=== PATIENT | female | born 1950 | race Caucasian/White ===

== ENCOUNTER 2017-09-04 09:40 | Observation (INO) | payer MEDICARE ==
[2017-09-01 08:56] VITALS: BMI 39.3
[2017-09-04] MEDS ORDERED: Bupivacaine HCl 0.25% PF (10 ml) Inj ONE ×2 (10:32)
[2017-09-04] MEDS ORDERED: ceFAZolin IV 2 gm in Dextrose 2 GM/50 ML BAG IVPB ONE (10:33)
[2017-09-04] MEDS ORDERED: Vasopressin 20 Units/ml Inj ONE (10:33)
[2017-09-04] MEDS ORDERED: Lactated Ringer's 1,000 ML IV ONE ×3 (11:06→15:26)
[2017-09-04] MEDS ORDERED: Midazolam 2 MG/2 ML VIAL ONE (11:10)
[2017-09-04] MEDS ORDERED: Propofol 10 mg/ml Inj (20 ML) ONE (11:10)
[2017-09-04] MEDS ORDERED: Rocuronium 10 mg/ml (5 ml) ONE ×2 (11:27→12:12)
[2017-09-04] MEDS ORDERED: Lidocaine Hydrochloride 5 ML INJ ONE (11:27)
[2017-09-04] MEDS ORDERED: Clindamycin 2% Vaginal Cream(40 gm) ONE (12:55)
[2017-09-04] MEDS ORDERED: Phenylephrine 10 mg/ml Inj ONE (13:08)
[2017-09-04] MEDS ORDERED: Succinylcholine Chloride 20 mg/ml Syr (5 ml) IV ONE (13:08)
[2017-09-04] MEDS ORDERED: Neostigmine Methylsulfate 3mg/3ml Syringe IV ONE (13:08)
[2017-09-04] MEDS ORDERED: Methylene Blue 10 mg/mL(10ml) IV ONE (13:10)
[2017-09-04] MEDS ORDERED: HYDROmorphone 0.5 mg/0.5 ml ISec IVP PRN (15:04)
[2017-09-04] MEDS ORDERED: Morphine 4 MG/ML VIAL IM PRN ×2 (15:20→18:33)
[2017-09-04] MEDS ORDERED: Sodium Chloride 0.9% 1,000 ML IV SCH ×2 (15:30→18:30)
[2017-09-04] MEDS ORDERED: Acetaminophen IV 1,000 MG in Premixed IV 1 EA IV ONE (17:20)
[2017-09-04] MEDS: Acetaminophen IV 1,000 MG in Premixed IV 1 EA IV SCH ×2 (17:20→17:30)
[2017-09-04] MEDS: cefOXitin IV 2 gm in Dextrose 2 GM/50 ML BAG IVPB SCH (23:10)
[2017-09-05 00:45] VITALS: O2SAT 97
[2017-09-05] MEDS: cefOXitin IV 2 gm in Dextrose 2 GM/50 ML BAG IVPB SCH (08:00)
[2017-09-05 08:22] LABS: HEMATOCRIT 33.6 % (34.0-47.0); MEAN CELL VOLUME 89.9 fL (81.0-99.0); MEAN CORPUSCULAR HEMOGLOBIN 29.4 pg (27.0-31.0); MEAN CORPUSCULAR HGB CONC 32.7 g/dL (33.0-37.0); MEAN PLATELET VOLUME 9.8 fL (7.2-11.7); RED CELL DISTRIBUTION WIDTH 13.5 % (11.5-14.5)
[2017-09-05 08:32] LABS: WHITE BLOOD COUNT 13.3 K/uL (4.8-10.8)
[2017-09-05 08:47] VITALS: BP 100/60; PULSE 73; RESP 18; TEMP 98.5
[2017-09-05 08:58] LABS: ALKALINE PHOSPHATASE 74 U/L (38-126); ALT/SGPT 39 U/L (9-52); AST/SGOT 24 U/L (14-36); BILIRUBIN,TOTAL 0.5 mg/dL (0.2-1.3); BLOOD UREA NITROGEN 13 mg/dL (7-17); CALCIUM 7.7 mg/dl (8.6-10.4); CARBON DIOXIDE 28 mmol/L (22-30); CHLORIDE 100 mmol/L (98-107); GFR AFRICAN-AMERICAN > 60; GLUCOSE,RANDOM 95 mg/dL (65-105); POTASSIUM 3.9 mmol/L (3.6-5.2); SODIUM 134 mmol/L (132-148); TOTAL PROTEIN 6.6 g/dL (6.3-8.3)
[2017-09-05] MEDS ORDERED: Influenza Vaccine 60 mcg/0.5 mL SYR (4YR UP) IM ONE (09:00)
--- NOTE | 2017-09-05 21:10 | PCM.OP ---
Operative Report - Operative Report Date of Surgery/Procedure: 09/04/17 Time of Surgery/Procedure: 11:30 Surgeon: Dr. Wagner Aggregate Conveyor Operator: Dr. Hicks Anesthesia/Sedation: GETA Pre-Operative Diagnosis: cystocele stage II, fibroid uterus Post-Operative Diagnosis: same Indication for Surgery: cystocele stage II, fibroid uterus Operative Findings: cystocele stage II, fibroid uterus measuring approx 10 weeks sized, ovaries were surgically absent bilaterally, adhesions in the upper abdomen, otherwise normal anatomy, bilateral ureteral jets on cystoscopy Procedure/Operation Description: After informed consent was obtained, patient was taken to the OR. She was prepped and draped in the usual sterile fashion after being placed under general anesthesia and lithotomy position. A V-care device was placed after the cervix was gently dilated and a awad catheter was introduced. Attention was then placed on patients abdomen where a 5mm supraumbilical incision was made. The 5mm port was introduced under direct visualization with the scope. Once inside the intraabdominal cavity, pneumoperitoneum was achieved. Right and left lower quadrant 5mm ports were introduced under direct visualization. The previously mentioned findings were noted. The left adnexa was identified, and the roung ligament was cauterized and cut with the ligature. The broad ligament was then dissected down and the bladder flap was created on the left. The uterine arteries were skeletonized, cauterized and cut. The right adnexa was identified and the process was repeated on the right side. Once the bladder was appropriately mobilized and anterior colpotomy was made with electrocautery and the incision was extended circumferentially until the uterus and cervix were amputated. The specimen was then delivered with ease. The vaginal cuff was closed vaginally with the use of 2-0 Vicryl. Excellent hemostasis was noted. The intraabdominal cavity was inspected and the pedicles were hemostatic. The pneumoperitoneum was evacuated and the ports were closed with 4-0 Monocryl. The anterior vaginal epithelium was grasped with Allis clamps and a vertical incision was made with a scalpel from the urethral vaginal junction to the apex of the prolapse. The vaginal epithelium was then dissected off the pubovesical fascia. The redundant vaginal epithelium was then removed and the pubovesical fascia was plicated with the use of 0-Vicryl after a Fozia plication stitch was placed approximately 1 cm from the urethral meatus. The vaginal epithelium was closed in a running locked fashion. Excellent hemostasis was noted. Cystoscopy revealed bilateral ureteral jets and intact bladder. A triangled shaped portion of skin from the perineal body was removed. A vertical incision was made with Metzembaum scissors on the posterior vaginal epithelium and the tissue was then dissected of the perirectal fascia. The levator ani muscle was then plicated. The vaginal epithelium was closed in a running locked fashion and skin was closed in a subcuticular fashion. Vaginal packing with antibiotic ointment was then placed. Patient was then awoken from general anesthesia and taken back to the recovery room in stable condition. All lap counts and instrument counts were correct x 2. Ancef 2g were given prior to starting procedure. Estimated Blood Loss: 100mL Blood Replaced: none Sponge/Instrument Count: correct x 2 Drains: awad catheter draining clear urine Complications: none Specimen: Uterus, cervix, bilateral fallopian tubes Discharge & Condition: Discharged on postoperative day #1 in stable condition
--- NOTE | 2017-09-05 21:45 | CP.PCM.PN ---
Subjective - Date & Time of Evaluation Date of Evaluation: 09/05/17 Time of Evaluation: 08:30 - Subjective Subjective: Patient denied any acute complaints. Pain is well controlled. She is ambulating , tolerating diet. She denies nausea, vomiting, SOB, chest pain, or any other. Reports passing flatus, denies bowel movements. Objective - Vital Signs/Intake and Output Vital Signs (last 24 hours): Temp Pulse Resp BP Pulse Ox 98.5 F 73 18 100/60 97 09/05/17 08:00 09/05/17 08:00 09/05/17 08:00 09/05/17 08:00 09/05/17 08:00 - Labs Labs: 09/05/17 08:13 09/05/17 08:13 - Constitutional Appears: Well, No Acute Distress - Head Exam Head Exam: ATRAUMATIC, NORMOCEPHALIC - Eye Exam Eye Exam: EOMI - Neck Exam Neck Exam: Full ROM - Respiratory Exam Respiratory Exam: Clear to Ausculation Bilateral - Cardiovascular Exam Cardiovascular Exam: REGULAR RHYTHM - GI/Abdominal Exam GI & Abdominal Exam: Normal Bowel Sounds - Extremities Exam Extremities Exam: Normal Inspection - Psychiatric Exam Psychiatric exam: Normal Affect, Normal Mood - Skin Skin Exam: Normal Color Additional comments: Patient may be discharged home once ambulating, voiding and tolerating regular diet. - Additional Findings Additional findings: Vaginal packing was removed and no active bleeding was noted
--- NOTE | 2017-09-05 21:52 | CP.PCM.DIS ---
Provider - Provider Date of Admission: 09/04/17 15:27 Attending physician: Polly Wagner Time Spent in preparation of Discharge (in minutes): 20 Diagnosis - Discharge Diagnosis (1) Cystocele Status: Resolved (2) Fibroid uterus Status: Resolved Hospital Course - Lab Results Lab Results: Most Recent Lab Values WBC 13.3 K/uL (4.8-10.8) H D 09/05/17 08:13 RBC 3.74 Mil/uL (3.80-5.20) L 09/05/17 08:13 Hgb 11.0 g/dL (11.0-16.0) D 09/05/17 08:13 Hct 33.6 % (34.0-47.0) L 09/05/17 08:13 MCV 89.9 fL (81.0-99.0) 09/05/17 08:13 MCH 29.4 pg (27.0-31.0) 09/05/17 08:13 MCHC 32.7 g/dL (33.0-37.0) L 09/05/17 08:13 RDW 13.5 % (11.5-14.5) 09/05/17 08:13 Plt Count 184 K/uL (130-400) 09/05/17 08:13 MPV 9.8 fL (7.2-11.7) 09/05/17 08:13 Sodium 134 mmol/L (132-148) 09/05/17 08:13 Potassium 3.9 mmol/L (3.6-5.2) 09/05/17 08:13 Chloride 100 mmol/L (98-107) 09/05/17 08:13 Carbon Dioxide 28 mmol/L (22-30) 09/05/17 08:13 Anion Gap 10 (10-20) 09/05/17 08:13 BUN 13 mg/dL (7-17) 09/05/17 08:13 Creatinine 0.7 mg/dL (0.7-1.2) 09/05/17 08:13 Est GFR ( Amer) > 60 09/05/17 08:13 Est GFR (Non-Af Amer) > 60 09/05/17 08:13 Random Glucose 95 mg/dL (65-105) 09/05/17 08:13 Calcium 7.7 mg/dl (8.6-10.4) L 09/05/17 08:13 Total Bilirubin 0.5 mg/dL (0.2-1.3) 09/05/17 08:13 AST 24 U/L (14-36) 09/05/17 08:13 ALT 39 U/L (9-52) 09/05/17 08:13 Alkaline Phosphatase 74 U/L (38-126) 09/05/17 08:13 Total Protein 6.6 g/dL (6.3-8.3) 09/05/17 08:13 Albumin 3.2 g/dL (3.5-5.0) L D 09/05/17 08:13 Globulin 3.4 gm/dL (2.2-3.9) 09/05/17 08:13 Albumin/Globulin Ratio 1.0 (1.0-2.1) 09/05/17 08:13 Blood Type O POSITIVE 09/04/17 11:13 Antibody Screen Negative 09/04/17 11:13 - Hospital Course Hospital Course: Patient underwent a total laparoscopic hysterectomy, anterior and posterior repair cystoscopy and tolerated procedure well. On postoperative day #1 patient was ambulating, voiding, tolerating regular diet, vital signs remained within normal limits, man was well controlled. She was then discharged home in stable condition - Date & Time of H&P Date of H&P: 09/04/17 Time of H&P: 10:00 Discharge Exam - Head Exam Head Exam: ATRAUMATIC, NORMOCEPHALIC - Eye Exam Eye Exam: EOMI - Neck Exam Neck exam: Full Rom - Respiratory Exam Respiratory Exam: Clear to PA & Lateral - Cardiovascular Exam Cardiovascular Exam: REGULAR RHYTHM - GI/Abdominal Exam GI & Abdominal Exam: Normal Bowel Sounds - Extremities Exam Extremities exam: normal inspection - Neurological Exam Neurological exam: Oriented x3 - Psychiatric Exam Psychiatric exam: Normal Affect, Normal Mood - Skin Skin Exam: Normal Color, Warm Discharge Plan - Follow Up Plan Condition: GOOD Disposition: DISCHARGED TO HOME CARE Instructions: Cystoscopy (DC), Anterior Vaginal Repair (DC), Laparoscopic Hysterectomy (DC), Posterior Vaginal Repair (DC) Additional Instructions: Follow up as outpatient in 1 week. Avoid heavy lifting.
== END 2017-09-05 12:30 | disposition home health service (06) ==
LOC: C.SDS 09:40 → C.4M 15:27
PROVIDERS: ADMIT Obstetrics & Gynecology; ATTEND Obstetrics & Gynecology
DX: D25.1 Intramural leiomyoma of uterus (principal); N81.10 Cystocele, unspecified; N88.8 Other specified noninflammatory disorders of cervix uteri; N80.0 Endometriosis of uterus; Z90.722 Acquired absence of ovaries, bilateral
CPT/HCPCS: 36415; 52000; 57260; 58570; 58661; 80053; 85027; 86850; 86900; 88305; 88309; 96372; 96374; 96375; 96376; C2615; G0378; J0131; J0690; J0694; J1100; J1170; J1644; J1885; J2250; J2370; J2405; J2704; J2710; J3010; J7120

== ENCOUNTER 2018-04-30 19:27 | Emergency (ER) | payer MEDICARE ==
[2018-04-30 19:28] VITALS: BMI 39.3
[2018-04-30 19:39] VITALS: TEMP 98.1
[2018-04-30] MEDS ORDERED: Sodium Chloride 0.9% 1,000 ML IV ONE (19:59)
--- NOTE | 2018-04-30 20:10 | C.PDOC ---
History Of Present Illness 68 year old female presents to the ED c/o left sided chest wall pain and upper abdominal pain for 2 days. Patient reports she stated feeling flank pain today as well. Patient denies fever, chills, nausea, vomit, diarrhea, dysuria, hematuria. Chief Complaint (Nursing): Abdominal Pain History Per: Patient History/Exam Limitations: no limitations Onset/Duration Of Symptoms: Days Current Symptoms Are (Timing): Still Present Location Of Pain/Discomfort: Epigastric Radiation Of Pain To:: Chest Quality Of Discomfort: "Pain" Associated Symptoms: Back Pain. denies: Nausea, Vomiting, Diarrhea, Urinary Symptoms Exacerbating Factors: None Alleviating Factors: None Recent travel outside of the [place]: No Additional History Per: Patient Abnormal Vaginal Bleeding: No Past Medical History Reviewed: Historical Data, Nursing Documentation, Vital Signs Vital Signs: Last Vital Signs Temp 98.1 F 04/30/18 19:34 Pulse 90 04/30/18 19:34 Resp 20 04/30/18 19:34 BP 143/82 04/30/18 19:34 Pulse Ox 98 04/30/18 20:18 - Medical History PMH: Anemia, Bronchitis, Fractures (LEFT TIBIA ORIF), Gastritis, HTN, Hypercholesterolemia, Hypothyroidism Denies: Chronic Kidney Disease Surgical History: Endoscopy - [facility] Procedures D & C NEC (06/09/14) LAP PROCS FOR CREATION OF ESOPHAGOGASTRIC SPHINCT COMPETENCE (01/17/15) LAPAROSCOP REMOVE OVARIES/TUBES (06/09/14) LAPAROSCOPIC REPAIR OF DIAPHRAGMATIC HRN, ABDOMINAL APPROACH (01/17/15) LAPAROSCOPIC ROBOTIC ASSISTED PROCEDURE (01/17/15) OTHER ENDOSCOPY OF SM INTEST (12/22/14) REMOVAL IUD (06/09/14) TRANSABDOM ENDOSC OF SM INTES (01/17/15) Family History: States: Unknown Family Hx - Social History Hx Tobacco Use: No Hx Alcohol Use: No Hx Substance Use: No - Immunization History Hx Tetanus Toxoid Vaccination: No Hx Influenza Vaccination: No Hx Pneumococcal Vaccination: No Review Of Systems Constitutional: Negative for: Fever, Chills Cardiovascular: Positive for: Chest Pain. Negative for: Palpitations Respiratory: Negative for: Cough, Shortness of Breath Gastrointestinal: Positive for: Abdominal Pain. Negative for: Nausea, Vomiting Genitourinary: Negative for: Dysuria, Hematuria Musculoskeletal: Positive for: Back Pain Skin: Negative for: Rash Neurological: Negative for: Weakness, Numbness Physical Exam - Physical Exam Appears: Non-toxic, No Acute Distress Skin: Normal Color, Warm, Dry Head: Atraumatic, Normacephalic Eye(s): bilateral: Normal Inspection Oral Mucosa: Moist Neck: Normal ROM, Supple Chest: Symmetrical, Tenderness (left lateral on palpation) Cardiovascular: Rhythm Regular Respiratory: Normal Breath Sounds, No Rales, No Rhonchi, No Wheezing Gastrointestinal/Abdominal: Soft, Tenderness (epipasgtric and mild RUQ), No Guarding, No Rebound Back: No CVA Tenderness Extremity: Normal ROM, No Tenderness, No Swelling Neurological/Psych: Oriented x3, Normal Speech Gait: Steady ED Course And Treatment - Laboratory Results Result Diagrams: 04/30/18 20:19 04/30/18 20:19 ECG: Interpreted By Me, Viewed By Me ECG Rhythm: Sinus Rhythm, Nonspecific Changes ECG Interpretation: No Acute Changes, Abnormal Interpretation Of ECG: NSR, non. spc. ST-T changes, abnormal tracings Rate From EC O2 Sat by Pulse Oximetry: 98 (ON RA) Pulse Ox Interpretation: Normal Medical Decision Making Medical Decision Making: Plan: * Labs * CXR * Pepcid 20 mg IVP * IV fluids * Toradol 30 mg IVP * Zofran 4 mg IVP * UA Disposition Counseled Patient/Family Regarding: Diagnosis - Disposition Referrals: [facility] [Outside] Disposition: HOME/ ROUTINE Disposition Time: 21:34 Condition: STABLE Prescriptions: Ciprofloxacin [Cipro] 1 tab PO BID #14 tab Famotidine [Pepcid] 20 mg PO BID #20 tab Instructions: Urinary Tract Infections in Adults, Gastritis, Ulcer and Gastritis Diet Forms: [facility] (Arabic), Gen Discharge Inst Greek Print Language: DANISH - POA Present On Arrival: None - Clinical Impression Clinical Impression: Gastritis, UTI (urinary tract infection) - Scribe Statement The provider has reviewed the documentation as recorded by the Scribe Zion Schrader All medical record entries made by the Scribe were at my direction and personally dictated by me. I have reviewed the chart and agree that the record accurately reflects my personal performance of the history, physical exam, medical decision making, and the department course for this patient. I have also personally directed, reviewed, and agree with the discharge instructions and disposition.
--- NOTE | 2018-04-30 20:11 | C.PDOC ---
History Of Present Illness 68 year old female presents to the ED c/o left sided chest wall pain and upper abdominal pain for 2 days. Patient reports she stated feeling flank pain today as well. Patient denies fever, chills, nausea, vomit, diarrhea, dysuria, hematuria. Chief Complaint (Nursing): Abdominal Pain History Per: Patient History/Exam Limitations: no limitations Onset/Duration Of Symptoms: Days Current Symptoms Are (Timing): Still Present Location Of Pain/Discomfort: Epigastric Radiation Of Pain To:: Chest Quality Of Discomfort: "Pain" Associated Symptoms: denies: Nausea, Vomiting, Diarrhea, Loss Of Appetite, Urinary Symptoms Alleviating Factors: None Recent travel outside of the [place]: No Additional History Per: Patient Abnormal Vaginal Bleeding: No Past Medical History Reviewed: Historical Data, Nursing Documentation, Vital Signs Vital Signs: Last Vital Signs Temp 98.1 F 04/30/18 19:34 Pulse 90 04/30/18 19:34 Resp 20 04/30/18 19:34 BP 143/82 04/30/18 19:34 Pulse Ox 98 04/30/18 19:34 - Medical History PMH: Anemia, Bronchitis, Fractures (LEFT TIBIA ORIF), Gastritis, HTN, Hypercholesterolemia, Hypothyroidism Denies: Chronic Kidney Disease Surgical History: Endoscopy - [facility] Procedures D & C NEC (06/09/14) LAP PROCS FOR CREATION OF ESOPHAGOGASTRIC SPHINCT COMPETENCE (01/17/15) LAPAROSCOP REMOVE OVARIES/TUBES (06/09/14) LAPAROSCOPIC REPAIR OF DIAPHRAGMATIC HRN, ABDOMINAL APPROACH (01/17/15) LAPAROSCOPIC ROBOTIC ASSISTED PROCEDURE (01/17/15) OTHER ENDOSCOPY OF SM INTEST (12/22/14) REMOVAL IUD (06/09/14) TRANSABDOM ENDOSC OF SM INTES (01/17/15) Family History: States: Unknown Family Hx - Social History Hx Tobacco Use: No Hx Alcohol Use: No Hx Substance Use: No - Immunization History Hx Tetanus Toxoid Vaccination: No Hx Influenza Vaccination: No Hx Pneumococcal Vaccination: No Review Of Systems Constitutional: Negative for: Fever, Chills Cardiovascular: Positive for: Chest Pain. Negative for: Palpitations Respiratory: Negative for: Shortness of Breath Gastrointestinal: Positive for: Abdominal Pain. Negative for: Nausea, Vomiting , Diarrhea Genitourinary: Negative for: Dysuria, Hematuria Musculoskeletal: Positive for: Back Pain Skin: Negative for: Rash Neurological: Negative for: Weakness, Numbness Physical Exam - Physical Exam Appears: Non-toxic, No Acute Distress Skin: Normal Color, Warm, Dry Head: Atraumatic, Normacephalic Eye(s): bilateral: Normal Inspection Oral Mucosa: Moist Neck: Normal ROM, Supple Chest: Symmetrical, Tenderness (left lateral on palpation) Cardiovascular: Rhythm Regular Respiratory: Normal Breath Sounds, No Rales, No Rhonchi, No Wheezing Gastrointestinal/Abdominal: Soft, Tenderness (epigastric and mild RUQ), No Guarding, No Rebound Back: No CVA Tenderness Extremity: Normal ROM, No Tenderness, No Swelling Neurological/Psych: Oriented x3, Normal Speech Gait: Steady ED Course And Treatment O2 Sat by Pulse Oximetry: 98 (ON RA) Pulse Ox Interpretation: Normal Medical Decision Making Medical Decision Making: Plan: * Labs * CXR * Pepcid 20 mg IVP * IV fluids * Toradol 30 mg IVP * Zofran 4 mg IVP * UA * Disposition - Disposition - Scribe Statement The provider has reviewed the documentation as recorded by the Scribe Zion Schrader All medical record entries made by the Scribe were at my direction and personally dictated by me. I have reviewed the chart and agree that the record accurately reflects my personal performance of the history, physical exam, medical decision making, and the department course for this patient. I have also personally directed, reviewed, and agree with the discharge instructions and disposition.
[2018-04-30 20:25] LABS: BASO # 0.1 K/uL (0.0-0.2); BASO % 1.1 % (0.0-2.0); EOS # 0.2 K/uL (0.0-0.7); LYMPH # 2.2 K/uL (1.0-4.3); LYMPH % 23.1 % (20.0-40.0); MEAN CELL VOLUME 90.2 fL (81.0-99.0); MEAN CORPUSCULAR HEMOGLOBIN 29.7 pg (27.0-31.0); MEAN CORPUSCULAR HGB CONC 32.9 g/dL (33.0-37.0); MEAN PLATELET VOLUME 8.7 fL (7.2-11.7); MONO # 0.7 K/uL (0.0-0.8); MONO % 6.9 % (0.0-10.0); NEUT # 6.3 K/uL (1.8-7.0); NEUT % 66.9 % (50.0-75.0); RBC 4.44 Mil/uL (3.80-5.20); RED CELL DISTRIBUTION WIDTH 13.6 % (11.5-14.5); WHITE BLOOD COUNT 9.4 K/uL (4.8-10.8)
[2018-04-30] MEDS ORDERED: Sodium Chloride 0.9% 0 ML ONE (20:25)
[2018-04-30 20:31] LABS: HEMOGLOBIN 13.2 g/dL (11.0-16.0)
[2018-04-30] MEDS ORDERED: Sodium Chloride 0.9% 1,000 ML ONE (20:32)
[2018-04-30 20:48] LABS: ALB/GLOB RATIO 1.3 (1.0-2.1); ALT/SGPT 46 U/L (9-52); AST/SGOT 29 U/L (14-36); BLOOD UREA NITROGEN 17 mg/dL (7-17); CALCIUM 9.2 mg/dl (8.6-10.4); GFR AFRICAN-AMERICAN > 60; GFR NON-AFRICAN AMERICAN > 60; LIPASE 53 U/L (23-300)
[2018-04-30 21:06] LABS: SQUAMOUS EPITHIAL 4 /hpf (0-5); URINE BILIRUBIN NEGATIVE (NEGATIVE); URINE BLOOD NEGATIVE (NEGATIVE); URINE CLARITY Hazy (Clear); URINE COLOR Yellow (YELLOW); URINE GLUCOSE (UA) NORMAL (Normal); URINE LEUKOCYTE ESTERASE 1+ Leu/uL (Negative); URINE PROTEIN NEGATIVE (NEGATIVE); URINE UROBILINOGEN NORMAL mg/dL (0.2-1.0)
[2018-04-30 22:02] VITALS: BP 130/70; PULSE 70; RESP 14; O2SAT 99
--- NOTE | 2018-05-01 08:33 | RAD ---
HISTORY: COMPARISON: 01/18/2015. TECHNIQUE: Chest PA and lateral FINDINGS: LINES AND TUBES: None. LUNG AND PLEURA: The lungs are well inflated and clear. No pleural effusion or pneumothorax. HEART AND MEDIASTINUM: The heart is not enlarged. The hilar and mediastinal contours are within normal limits. SKELETAL STRUCTURES: The bony structures are within normal limits for the patient's age. VISUALIZED UPPER ABDOMEN: Normal. OTHER FINDINGS: None. IMPRESSION: No active pulmonary disease.
== END 2018-04-30 22:02 | disposition home or self-care (01) ==
LOC: C.ER 19:27
DX: K29.70 Gastritis, unspecified, without bleeding (principal); N39.0 Urinary tract infection, site not specified
CPT/HCPCS: 71046; 80053; 81001; 83690; 84484; 85025; 85378; 96374; 96375; 99284; J1885; J2405; J7030

== ENCOUNTER 2018-09-08 07:42 | Day surgery (SDC) | payer MEDICARE ==
[2018-09-08] MEDS ORDERED: cefOXitin IV 2 gm in Dextrose 2 GM/50 ML BAG IVPB ONE (08:45)
[2018-09-08] MEDS ORDERED: Clindamycin 2% Vaginal Cream(40 gm) ONE (08:45)
[2018-09-08] MEDS ORDERED: Bupivacaine HCl 0.5% PF (30 ml) Inj ONE (08:47)
[2018-09-08] MEDS ORDERED: Midazolam 2 MG/2 ML VIAL ONE (09:10)
[2018-09-08] MEDS ORDERED: Propofol 10 mg/ml Inj (20 ML) ONE (09:11)
[2018-09-08] MEDS ORDERED: Vasopressin 20 Units/ml Inj ONE (09:39)
--- NOTE | 2018-09-08 11:05 | PCM.SURG1 ---
Surgeon's Initial Post Op Note - Surgeon's Notes Surgeon: Dr. Wagner Sorter Lumber Straightener: Dr. Dyson Type of Anesthesia: General Endo Pre-Operative Diagnosis: Vaginal vault prolapse, pelvic pain Operative Findings: Stage III vaginal prolapse Post-Operative Diagnosis: same Operation Performed: Anterior/posterior colporrhaphy, cystoscopy Specimen/Specimens Removed: portions of vaginal epithelium Estimated Blood Loss: EBL {In ML}: 50 Blood Products Given: N/A Drains Used: No Drains Post-Op Condition: Good Date of Surgery/Procedure: 09/08/18 Time of Surgery/Procedure: 09:00
[2018-09-08] MEDS ORDERED: Lactated Ringer's 1,000 ML IV ONE ×2 (11:07→11:22)
[2018-09-08] MEDS ORDERED: HYDROmorphone 0.5 mg/0.5 ml ISec IVP PRN (11:07)
[2018-09-08] MEDS ORDERED: Oxycodone/Acetaminophen 5/325 mg Tab PO PRN (11:21)
[2018-09-08] MEDS ORDERED: Sodium Chloride 0.9% 1,000 ML IV SCH (11:30)
[2018-09-08 13:27] VITALS: PULSE 73; RESP 16
[2018-09-08 15:34] VITALS: BP 111/67; TEMP 97.5; O2SAT 95
--- NOTE | 2018-09-11 12:36 | PCM.OP ---
Operative Report - Operative Report Date of Surgery/Procedure: 09/08/18 Time of Surgery/Procedure: 09:30 Surgeon: Dr. Wagner Paraprofessional Aide: Dr. Dyson Anesthesia/Sedation: General anesthesia Pre-Operative Diagnosis: Pelvic organ prolapse, pelvic pain Post-Operative Diagnosis: same Indication for Surgery: vaginal vault prolapse, pelvic pain Operative Findings: Vaginal vault prolapse to level of introitus Procedure/Operation Description: After informed consent was obtained patient was taken back to the OR. She was prepped and draped in the usual sterile fashion after being placed in lithotomy position. After awad catheter was placed a weighted speculum was introduced. The anterior vaginal epithelium was injected with Pitressin. A midline vertical incision was made with a scalpel. The vaginal epithelium was then sharply and bluntly dissected off the vesico-vaginal fascia. The fascia was then plicated with 2-0 Vicryl. The excess vaginal epithelium was then removed and the epithelium was closed in a running locked fashion. Attention was then placed on the posterior vaginal epithelium was injected with pitressin. The vaginal epithelium was then sharply and bluntly off. The posterior rectovaginal tissue was plicated. The excess vaginal epithelium was then removed and the incision was closed with 2-0 Vicryl. Excellent hemostasis was noted. Vaginal packing was placed. Patient was then awoken from general anesthesia and taken back to the recovery room in stable condition. All lap counts and instrument counts were correct x 2. Estimated Blood Loss: 50 Complications: none Discharge & Condition: stable
== END 2018-09-08 15:02 | disposition home or self-care (01) ==
LOC: C.SDS 07:42
PROVIDERS: ATTEND Obstetrics & Gynecology
DX: N81.10 Cystocele, unspecified (principal); N81.6 Rectocele
CPT/HCPCS: 57260; 88305; J0694; J1170; J2250; J2704; J3010; J7120

== ENCOUNTER 2019-03-19 17:58 | Observation (INO) | payer MEDICARE ==
[2019-03-19 17:58] VITALS: BMI 39.3
[2019-03-19 18:34] LABS: BASO # 0.1 K/uL (0.0-0.2); BASO % 0.6 % (0.0-2.0); EOS # 0.4 K/uL (0.0-0.7); EOS % 3.6 % (0.0-4.0); HEMOGLOBIN 7.7 g/dL (11.0-16.0); LYMPH # 2.1 K/uL (1.0-4.3); LYMPH % 19.4 % (20.0-40.0); MEAN CELL VOLUME 81.1 fL (81.0-99.0); MEAN CORPUSCULAR HGB CONC 30.9 g/dL (33.0-37.0); MEAN PLATELET VOLUME 8.7 fL (7.2-11.7); MONO # 1.3 K/uL (0.0-0.8); MONO % 11.4 % (0.0-10.0); NEUT # 7.2 K/uL (1.8-7.0); NRBC % 0.1 % (0.0-2.0); RBC 3.06 Mil/uL (3.80-5.20); RED CELL DISTRIBUTION WIDTH 18.5 % (11.5-14.5); WHITE BLOOD COUNT 11.1 K/uL (4.8-10.8)
[2019-03-19 18:45] LABS: ALB/GLOB RATIO 1.3 (1.0-2.1); ALBUMIN 3.7 g/dL (3.5-5.0); ALT/SGPT 35 U/L (9-52); AMYLASE < 30 U/L (30-110); AST/SGOT 25 U/L (14-36); BLOOD UREA NITROGEN 26 mg/dL (7-17); CALCIUM 8.6 mg/dl (8.6-10.4); GFR NON-AFRICAN AMERICAN > 60; LIPASE 63 U/L (23-300)
--- NOTE | 2019-03-19 19:09 | C.PDOC ---
History Of Present Illness 68 y/o female presents to ED complaining of 8 days of abdominal cramping pain, dyspnea on exertion, and dizziness with chest pressure while walking. Patient was seen by Dr. Dooley a week ago and found to have significant anemia. Patient did not present for further evaluation. Was sent to spark tester (unknown) and an external him analyst was placed on left upper chest which patient believes is causing her to have chest pressure and tightness while she walks. Time Seen by Provider: 03/19/19 18:23 Chief Complaint (Nursing): Abdominal Pain History Per: Patient History/Exam Limitations: no limitations Onset/Duration Of Symptoms: Days Current Symptoms Are (Timing): Still Present Past Medical History Reviewed: Historical Data, Nursing Documentation, Vital Signs Vital Signs: Last Vital Signs Temp 97.6 F 03/19/19 18:05 Pulse 72 03/19/19 18:05 Resp 18 03/19/19 18:05 BP 109/74 03/19/19 18:05 Pulse Ox 98 03/19/19 18:05 Primary Care Provider: Dax Dooley - Medical History PMH: Anemia, Bronchitis, Fractures (LEFT TIBIA ORIF), Gastritis, HTN, Hypercholesterolemia, Hypothyroidism Denies: Chronic Kidney Disease Surgical History: Endoscopy - [facility] Procedures D & C NEC (06/09/14) LAP PROCS FOR CREATION OF ESOPHAGOGASTRIC SPHINCT COMPETENCE (01/17/15) LAPAROSCOP REMOVE OVARIES/TUBES (06/09/14) LAPAROSCOPIC REPAIR OF DIAPHRAGMATIC HRN, ABDOMINAL APPROACH (01/17/15) LAPAROSCOPIC ROBOTIC ASSISTED PROCEDURE (01/17/15) OTHER ENDOSCOPY OF SM INTEST (12/22/14) REMOVAL IUD (06/09/14) TRANSABDOM ENDOSC OF SM INTES (01/17/15) Family History: States: No Known Family Hx - Social History Hx Tobacco Use: No Hx Alcohol Use: No Hx Substance Use: No - Immunization History Hx Tetanus Toxoid Vaccination: No Hx Influenza Vaccination: No Hx Pneumococcal Vaccination: No Review Of Systems Except As Marked, All Systems Reviewed And Found Negative. Respiratory: Positive for: Other (dyspnea on excertion) Gastrointestinal: Positive for: Abdominal Pain. Negative for: Nausea, Vomiting Neurological: Positive for: Dizziness Physical Exam - Physical Exam Appears: Non-toxic, No Acute Distress, Other (elderly female) Skin: Warm, Dry Head: Normacephalic Eye(s): bilateral: Normal Inspection Oral Mucosa: Moist Neck: Supple Chest: Other (him analyst on left anterior chest) Cardiovascular: Rhythm Regular, No Murmur Respiratory: Normal Breath Sounds, No Rales, No Rhonchi, No Wheezing Gastrointestinal/Abdominal: Soft, No Guarding, No Rebound, Other (abdomen globus and obese, alternatingly dull and tympanic to percussion) Extremity: No Pedal Edema, Other (lower extremities obese) Extremity: Bilateral: Normal Color And Temperature Neurological/Psych: Oriented x3, Normal Speech ED Course And Treatment - Laboratory Results Result Diagrams: 03/19/19 18:27 03/19/19 18:27 Lab Results: Total Bilirubin 0.2 mg/dL (0.2-1.3) 03/19/19 18:27 AST 25 U/L (14-36) 03/19/19 18:27 ALT 35 U/L (9-52) 03/19/19 18:27 Alkaline Phosphatase 103 U/L (38-126) 03/19/19 18:27 Total Protein 6.6 g/dL (6.3-8.3) 03/19/19 18:27 Albumin 3.7 g/dL (3.5-5.0) 03/19/19 18:27 Globulin 2.9 gm/dL (2.2-3.9) 03/19/19 18:27 Albumin/Globulin Ratio 1.3 (1.0-2.1) 03/19/19 18:27 Amylase < 30 U/L (30-110) L 03/19/19 18:27 Lipase 63 U/L (23-300) 03/19/19 18:27 Lab Interpretation: Abnormal (+ significant HGB drop c/w 05/06, not microcytic,) ECG: Interpreted By Me ECG Rhythm: Sinus Rhythm ECG Interpretation: Normal Rate From EC O2 Sat by Pulse Oximetry: 98 (RA) Pulse Ox Interpretation: Normal - Radiology CXR: Interpreted by Me CXR Interpretation: Yes: No Acute Disease - Other Rad abd x 2 X-Ray: Interpreted by Me (increased stool and gas, no obstruction) Reevaluation Time: 19:30 Reassessment Condition: Unchanged - Physician Consult Information Outcome Of Conversation: 1930: d/w Dr. Hang Pillai, Hospitalist- covering pts for Dr. Caio godoy to Med/Surg Obs Medical Decision Making Medical Decision Making: Plan: --EKG --Labs --Protonix --UA --Obstructive Series 8 days belly discomfort with dark stools and occasional BRBPR last Colonoscopy 10 yrs ago no sig weight gains/loss Suspect upper vs lower GIB Protonix empirically Consider CT scan as inpt GI Consult for upper/lower endoscopies Symptomatic anemia with SAUL and Palps x 2 weeks Cardiac mobile monitor on L chest but no labs done @ [facility] EKG NSR 69, no acute changes Disposition Doctor Will See Patient In The: Hospital Counseled Patient/Family Regarding: Studies Performed, Diagnosis - Disposition Disposition: HOSPITALIZED Disposition Time: 19:33 Condition: GOOD - Clinical Impression Clinical Impression: GI bleeding, Symptomatic anemia - Scribe Statement The provider has reviewed the documentation as recorded by the Harrison Adams Provider Attestation: All medical record entries made by the Harrison were at my direction and personally dictated by me. I have reviewed the chart and agree that the record accurately reflects my personal performance of the history, physical exam, medi suhas decision making, and the department course for this patient. I have also personally directed, reviewed, and agree with the discharge instructions and disposition.
[2019-03-19 20:14] VITALS: RESP 20
--- NOTE | 2019-03-19 21:08 | CP.PCM.HP ---
<Henrique Lyles - Last Filed: 03/20/19 03:51> History of Present Illness - History of Present Illness History of Present Illness: Medicine History and Physical for Hospitalist Service, Dr. Coni Pillai 67 y o female PMhx HTN, arthritis, hypothyroidism, anemia, gastritis, s/p hiatal hernia repair 3 y ago, who presents c/o BRBPR x 8 days and abd pain. States that the abd pain starts in mid-epigastric region and then spreads downward. Describes abd pain as achy. Denies hx of this occurring before. Reports associated palpitations, HAs, and dyspnea on exertion for the past week. Also reporting increased urinary frequency, but denies burning with urination, abnormal odor, or vaginal discharge. States she had chest pain 3 days ago which prompted her a visit to the doctor and they placed a Holter monitor on her. Denies fever, chills, n/v/d/c, or other symptoms. PMhx: as noted above PSurgHx: Hiatal hernia repair 3 y ago, abdominoplasty 12 y ago, L tibial fracture repair (pt has metal plates on her L leg), b/l oophorectomy 1 y ago for cysts Allergies: NKDA Home meds: Losartan 100 mg daily, Lipitor 40 mg daily, Omeprazole 40 mg daily, Synthroid 100 mcg daily, Diclofenac 50 mg daily, Toprol XL 50 mg daily Fam hx: Maternal aunt with breast cancer; HTN, thyroid disease Soc hx: Denies smoking, EtOH or illicit drug use PMD: Dr. Dooley Present on Admission - Present on Admission Any Indicators Present on Admission: No Review of Systems - Constitutional Constitutional: absent: Chills, Fatigue, Fever - EENT Eyes: absent: Change in Vision - Cardiovascular Cardiovascular: absent: Chest Pain, Dyspnea on Exertion - Respiratory Respiratory: absent: Cough, Wheezing - Gastrointestinal Gastrointestinal: Abdominal Pain, Hematochezia. absent: Diarrhea, Nausea, Vomiting - Genitourinary Genitourinary: Urinary Frequency. absent: Change in Urinary Stream, Difficulty Urinating, Dysuria Past Patient History - Past Medical History & Family History Past Medical History?: Yes - Past Social History Smoking Status: Never Smoked - CARDIAC Hx Hypercholesterolemia: Yes Hx Hypertension: Yes - PULMONARY Hx Bronchitis: Yes - NEUROLOGICAL Hx Neurological Disorder: Yes Hx Vertigo: Yes - HEENT Hx HEENT Problems: No - RENAL Hx Chronic Kidney Disease: No - ENDOCRINE/METABOLIC Hx Hypothyroidism: Yes - HEMATOLOGICAL/ONCOLOGICAL Hx Anemia: Yes - INTEGUMENTARY Hx Dermatological Problems: No - MUSCULOSKELETAL/RHEUMATOLOGICAL Hx Fractures: Yes (LEFT TIBIA ORIF) - GASTROINTESTINAL Hx Gastritis: Yes - GENITOURINARY/GYNECOLOGICAL Hx Genitourinary Disorders: Yes (BLADDER PROLAPSE) Other/Comment: HX: PELVIC ORGAN PROLAPSE; PELVIC PAIN; RETROCELE - PSYCHIATRIC Hx Substance Use: No - SURGICAL HISTORY Hx Surgeries: Yes (ABDOMINOPLASTY) Hx Herniorrhaphy: Yes (UMBILICAL HERNIA HIATAL HERNIA) Hx Hysterectomy: Yes (09/04/17) Hx Orthopedic Surgery: Yes (LEFT TIBIA FRACTURE) Other/Comment: BILAT OOPHORECTOMY. HX: 09/04/17-TOTAL LAP. HYSTERECTOMY, A&P REPAIR;CYSTOSCOPY - ANESTHESIA Hx Anesthesia: Yes Hx Anesthesia Reactions: No Hx Malignant Hyperthermia: No Meds Allergies/Adverse Reactions: Allergies Allergy/AdvReac Type Severity Reaction Status Date / Time No Known Allergies Allergy Verified 04/30/18 19:41 Physical Exam - Constitutional Appears: Non-toxic, No Acute Distress - Head Exam Head Exam: ATRAUMATIC, NORMOCEPHALIC - Eye Exam Eye Exam: EOMI, Normal appearance, PERRL - ENT Exam ENT Exam: Mucous Membranes Moist - Respiratory Exam Respiratory Exam: Clear to Auscultation Bilateral, NORMAL BREATHING PATTERN. absent: Rales, Rhonchi, Wheezes - Cardiovascular Exam Cardiovascular Exam: REGULAR RHYTHM, +S1, +S2. absent: Gallop, Rubs, Systolic Murmur - GI/Abdominal Exam GI & Abdominal Exam: Normal Bowel Sounds, Soft. absent: Distended, Organomegaly, Rigid, Tenderness - Rectal Exam Rectal Exam: NORMAL INSPECTION. absent: Black Stool, Bloody Stool, Hemorrhoids, Fecal Impaction - Extremities Exam Extremities exam: Positive for: full ROM, normal capillary refill, normal inspection, pedal pulses present - Back Exam Back exam: FULL ROM, NORMAL INSPECTION. absent: paraspinal tenderness - Neurological Exam Neurological exam: Alert, CN II-XII Intact, Oriented x3, Reflexes Normal - Skin Skin Exam: Dry, Intact, Normal Color, Warm Results - Vital Signs Recent Vital Signs: Last Vital Signs Temp 97.1 F L 03/19/19 20:14 Pulse 97 H 03/19/19 20:14 Resp 20 05/31/19 20:14 BP 110/66 03/19/19 20:14 Pulse Ox 98 03/19/19 20:58 - Labs Result Diagrams: 03/19/19 18:27 03/19/19 18:27 Labs: Laboratory Results - last 24 hr 03/19/19 03/19/19 03/19/19 18:27 18:27 20:17 WBC 11.1 H RBC 3.06 L Hgb 7.7 L D Hct 24.8 L MCV 81.1 D MCH 25.0 L MCHC 30.9 L RDW 18.5 H Plt Count 325 D MPV 8.7 Neut % (Auto) 65.0 Lymph % (Auto) 19.4 L [place] % (Auto) 11.4 H Eos % (Auto) 3.6 Baso % (Auto) 0.6 Neut # (Auto) 7.2 H Lymph # (Auto) 2.1 [place] # (Auto) 1.3 H Eos # (Auto) 0.4 Baso # (Auto) 0.1 Sodium 139 Potassium 3.6 Chloride 104 Carbon Dioxide 28 Anion Gap 11 BUN 26 H Creatinine 0.9 Est GFR ( Amer) > 60 Est GFR (Non-Af Amer) > 60 Random Glucose 100 D Calcium 8.6 Total Bilirubin 0.2 AST 25 ALT 35 Alkaline Phosphatase 103 Troponin I < 0.0120 Total Protein 6.6 Albumin 3.7 Globulin 2.9 Albumin/Globulin Ratio 1.3 Amylase < 30 L Lipase 63 Assessment & Plan - Assessment and Plan (Free Text) Assessment: 67 y o female PMhx HTN, arthritis, hypothyroidism, anemia, gastritis, s/p hiatal hernia repair 3 y ago, who presents c/o BRBPR x 8 days and abd pain. R/o GI bleed. GI (Dr. Munoz) consulted. Plan: BRBPR/GI bleed -Admit to med/surg -GI consulted, recs appreciated -CT abd/pelvis pending -Abd XR done in ED, f/u results -Remain NPO -Protonix q12h IVP -Leukocytosis on admission, may be reactive, cont to monitor Anemia -Hgb 7.7, was 13.2 in April 2018 -R/o GI bleed or occult malignancy as etiology of symptoms -Rectal exam neg for active bleed or hemorrhoids -S/p type and cross x2 units -Consent signed at bedside for blood transfusion, to be transfused 1 U PRBC, monitor H/H post-transfusion Urinary Frequency -U/a, urine cx ordered -R/o UTI Hx HTN -C/w home meds Toprol XL and Cozaar daily -Cont to trend BPs Hx hypothyroidism -C/w home med Synthroid daily Hx gastritis -Protonix bid PPX: -DVT: SCD; pharm ppx CI'd 2/2 GIB -GI ppx: Protonix bid Pt seen, examined with, and plan discussed with Dr. Coni Pillai, attending physician. Henrique Lyles DO PGY-1, [employer] Pager #[phone] <Coni Pillai N - Last Filed: 03/20/19 22:47> Results - Vital Signs Recent Vital Signs: Last Vital Signs Temp 97.7 F 03/20/19 15:00 Pulse 68 03/20/19 15:00 Resp 20 03/20/19 15:00 BP 118/69 03/20/19 15:00 Pulse Ox 96 03/20/19 20:26 - Labs Result Diagrams: 03/20/19 19:44 03/20/19 10:50 Labs: Laboratory Results - last 24 hr 03/19/19 03/20/19 03/20/19 20:18 06:37 10:50 WBC 8.3 RBC 3.14 L Hgb 8.0 L Hct 25.6 L MCV 81.7 MCH 25.5 L MCHC 31.2 L RDW 18.0 H Plt Count 264 MPV 8.8 Neut % (Auto) 63.9 Lymph % (Auto) 23.3 [place] % (Auto) 8.7 Eos % (Auto) 3.5 Baso % (Auto) 0.6 Neut # (Auto) 5.3 Lymph # (Auto) 1.9 [place] # (Auto) 0.7 Eos # (Auto) 0.3 Baso # (Auto) 0.1 Sodium Potassium Chloride Carbon Dioxide Anion Gap BUN Creatinine Est GFR ( Amer) Est GFR (Non-Af Amer) Random Glucose Calcium Phosphorus Magnesium Total Bilirubin AST ALT Alkaline Phosphatase Total Protein Albumin Globulin Albumin/Globulin Ratio Urine Color Yellow Urine Clarity Hazy Urine pH 5.0 Ur Specific [place] 1.023 Urine Protein Negative Urine Glucose (UA) Normal Urine Ketones Negative Urine Blood Negative Urine Nitrate Negative Urine Bilirubin Negative Urine Urobilinogen 2.0 H Ur Leukocyte Esterase Neg Urine WBC (Auto) 5 Urine RBC (Auto) 1 Ur Squamous Epith Cells 1 Urine Bacteria Mod H Blood Type O POSITIVE Antibody Screen Negative 03/20/19 03/20/19 10:50 19:44 WBC 8.7 RBC 3.24 L Hgb 8.4 L Hct 26.5 L MCV 81.8 MCH 26.1 L MCHC 31.9 L RDW 17.8 H Plt Count 248 MPV 8.6 Neut % (Auto) Lymph % (Auto) [place] % (Auto) Eos % (Auto) Baso % (Auto) Neut # (Auto) Lymph # (Auto) [place] # (Auto) Eos # (Auto) Baso # (Auto) Sodium 140 Potassium 4.0 Chloride 107 Carbon Dioxide 27 Anion Gap 10 BUN 18 H Creatinine 0.7 Est GFR ( Amer) > 60 Est GFR (Non-Af Amer) > 60 Random Glucose 103 Calcium 8.0 L Phosphorus 3.4 Magnesium 2.0 Total Bilirubin 0.2 AST 21 ALT 30 Alkaline Phosphatase 99 Total Protein 5.6 L Albumin 3.2 L Globulin 2.4 Albumin/Globulin Ratio 1.3 Urine Color Urine Clarity Urine pH Ur Specific [place] Urine Protein Urine Glucose (UA) Urine Ketones Urine Blood Urine Nitrate Urine Bilirubin Urine Urobilinogen Ur Leukocyte Esterase Urine WBC (Auto) Urine RBC (Auto) Ur Squamous Epith Cells Urine Bacteria Blood Type Antibody Screen Attending/Attestation - Attestation I have fully participated in the care of the patient.: Yes I have reviewed all pertinent clinical information: Yes
[2019-03-20] MEDS: Sodium Chloride 0.9% 1,000 ML IV SCH ×3 (00:15→19:24)
--- NOTE | 2019-03-20 07:33 | RAD ---
Abdomen four views HISTORY: Belly cramping. COMPARISON: None available. FINDINGS: Electronic device projects over the left hemithorax. No focal infiltrate or effusion. Tortuous aorta. Heart size within normal limits. Moderate to severe fecal retention in the colon. Question punctate radiopaque foci projecting over the right renal fossa, nonspecific. Clinical correlation. Calcified phleboliths in the pelvis. Impression: Moderate to severe fecal retention in the colon.
[2019-03-20 07:34] LABS: SQUAMOUS EPITHIAL 1 /hpf (0-5); URINE BACTERIA MOD (<OCC); URINE BILIRUBIN NEGATIVE (NEGATIVE); URINE BLOOD NEGATIVE (NEGATIVE); URINE CLARITY Hazy (Clear); URINE COLOR Yellow (YELLOW); URINE GLUCOSE (UA) NORMAL (Normal); URINE LEUKOCYTE ESTERASE NEG Leu/uL (Negative); URINE PROTEIN NEGATIVE (NEGATIVE)
[2019-03-20] MEDS: Levothyroxine 100 MCG TAB PO SCH (08:46)
--- NOTE | 2019-03-20 09:09 | CP.PCM.PN ---
<Natanael Ordonez - Last Filed: 03/20/19 16:40> Subjective - Date & Time of Evaluation Date of Evaluation: 03/20/19 Time of Evaluation: 09:06 - Subjective Subjective: PGY3 note for Dr Deleon's service Pt seen and examined at bedside. Nursing reports no acute events overnight. Long conversation with daughter (Sallie) via cell phone who helped with patient history. Patient states she still feels "achy" mid-epigastric pain, that does not radiate to the back. Rates pain as 3-4/10 on severity scale. Denies chest pain/palpitations overnight, but states she had these symptoms "a few days ago - which required holter monitor placement. Denies urinary symptoms: dysuria, abnormal vaginal odor, or vaginal discharge. Daughter reports severe OA for last several days for which she recently had nerve block. States she was taking "Motrin 800mg several times per day" for severe OA. Daughter states patient had colonoscopy "10 years ago" which was "normal." States pt was told at time of initial colonoscopy she would be due this year for follow up colonoscopy. Objective - Vital Signs/Intake and Output Vital Signs (last 24 hours): Temp Pulse Resp BP Pulse Ox 98 F 71 20 99/66 L 97 03/20/19 08:15 03/20/19 08:15 03/20/19 08:15 03/20/19 08:15 03/20/19 08:15 Intake and Output: 03/20/19 03/20/19 06:59 18:59 Intake Total 1590 Balance 1590 - Medications Medications: Current Medications Sodium Chloride (Sodium Chloride 0.9%) 1,000 mls @ 100 mls/hr IV .Q10H [facility] Last Admin: 03/20/19 00:15 Dose: 100 mls/hr Levothyroxine Sodium (Synthroid) 100 mcg PO 0630 [facility] Last Admin: 03/20/19 08:46 Dose: 100 mcg Losartan Potassium (Cozaar) 100 mg PO DAILY [facility] Metoprolol Succinate (Toprol Xl) 50 mg PO DAILY [facility] Pantoprazole Sodium (Protonix Inj) 40 mg IVP Q12H [facility] Pneumococcal Polyvalent Vaccine (Pneumovax 23 Vaccine) 0.5 ml IM .ONCE ONE Stop: 03/21/19 10:01 Rosuvastatin Calcium (Crestor) 20 mg PO HS [facility] - Labs Labs: 03/19/19 18:27 03/19/19 18:27 - Additional Findings Additional findings: - Constitutional Appears: Non-toxic, No Acute Distress - Head Exam Head Exam: ATRAUMATIC, NORMOCEPHALIC - Eye Exam Eye Exam: EOMI, Normal appearance, PERRL - ENT Exam ENT Exam: Mucous Membranes Moist - Respiratory Exam Respiratory Exam: Clear to Auscultation Bilateral, NORMAL BREATHING PATTERN. absent: Rales, Rhonchi, Wheezes - Cardiovascular Exam Cardiovascular Exam: REGULAR RHYTHM, +S1, +S2. absent: Gallop, Rubs, Systolic Murmur - Holter monitor on left upper chest - GI/Abdominal Exam GI & Abdominal Exam: Normal Bowel Sounds, Soft, mild epigastric tenderness. absent: Distended, Organomegaly, Rigid, - Rectal Exam Rectal Exam: NORMAL INSPECTION. absent: Black Stool, Bloody Stool, Hemorrhoids, Fecal Impaction - Extremities Exam Extremities exam: Positive for: full ROM, normal capillary refill, normal inspection, pedal pulses present - Back Exam Back exam: FULL ROM, NORMAL INSPECTION. absent: paraspinal tenderness - Neurological Exam Neurological exam: Alert, CN II-XII Intact, Oriented x3, Reflexes Normal - Skin Skin Exam: Dry, Intact, Normal Color, Warm Assessment and Plan - Assessment and Plan (Free Text) Plan: Assessment: 67 y o female PMhx HTN, arthritis, hypothyroidism, anemia, gastritis, s/p hiatal hernia repair 3 y ago, who presents c/o BRBPR x 8 days and abd pain. R/o GI bleed. GI (Dr. Munoz) consulted. Plan: BRBPR/GI bleed Admit to med/surg; Rectal exam negative on admission for acute blood in vault Obstruction series (03/19/19): Moderate - severe fecal retention CT abd/pelvis (03/19/19): Thickening of distal gastric wall at antrum/pylorus suggesting focal gastritis/duodenitis. Moderate fecal retention. 6mm non- obstructive left renal calculus. Fatty atrophy of pancreas. Mild thickening of distal appendix - nonspecific, as proximal and midportion of appendix preserved. Trial of liquid diet GI consulted, Dr Munoz, recs appreciated - recommend outpt Endocscopy/colonoscopy NS @ 100cc/hr Protonix q12h IVP Gastritis/duodenitis Pt admits frequent NSAID use CT abd/pelvis (03/19/19): Thickening of distal gastric wall at antrum/pylorus gar ggesting focal gastritis/duodenitis. Protonix 40mg IV Q12H Anemia, Symptomatic Pt with recent chest pain/palpitations/dizziness - currently on holter monitor Pt admits frequent NSAID use Hgb 7.7, was 13.2 in April 2018 - s/p 1 unit CBC: Hgb 8 - transfuse additional PRBC unit - f/u CBC @ 1900 S/p type and cross x2 units Consent signed at bedside for blood transfusion Severe OA (right knee) Frequent NSAID use; recent nerve block Advised to use Tylenol moving forward Fecal retention Seen on XR obst series/CT Miralax 17 gm ONCE Metamucil BID Leukocytosis may be reactive, cont to monitor Urinary Frequency UA (03/19/19): moderate bacteria, but negative LE & WBC f/u Urine cx Hx HTN Borderline hypotensive since admission C/w home meds Toprol XL and Cozaar daily Monitor Hx hypothyroidism -C/w home med Synthroid daily Hx gastritis -Protonix bid DDD Found incidentally on CT A/P Patient denies radiculopathy PPX: -DVT: SCD; pharm ppx CI'd 2/2 GIB -GI ppx: Protonix bid Disposition: s/p 1 unit PRBCs - H/H to 8.0. Transfuse additional unit - f/u CBC @ 1900. Will need endoscopy/colonoscopy as outpatient per GI. Natanael Ordonez PGY3 D/w Attending, Dr Marlys Deleon <Efrain Deleon - Last Filed: 03/23/19 12:24> Objective - Vital Signs/Intake and Output Vital Signs (last 24 hours): Temp Pulse Resp BP Pulse Ox 98.1 F 70 20 118/68 97 03/21/19 07:28 03/21/19 07:28 03/21/19 07:28 03/21/19 07:28 03/21/19 07:28 - Labs Labs: 03/21/19 07:40 03/21/19 07:40 Attending/Attestation - Attestation I have personally seen and examined this patient.: Yes I have fully participated in the care of the patient.: Yes I have reviewed all pertinent clinical information, including history, physical exam and plan: Yes Notes (Text): 03/23/19 12:24 This is a late entry. Care of this patient was gone over in detail with resident Dr. Rajat Ordonez. Efrain Deleon D.O.
[2019-03-20] MEDS: Metoprolol Succinate 50 mg XL Tab PO SCH (09:48)
[2019-03-20 10:56] LABS: BASO # 0.1 K/uL (0.0-0.2); BASO % 0.6 % (0.0-2.0); EOS # 0.3 K/uL (0.0-0.7); EOS % 3.5 % (0.0-4.0); LYMPH # 1.9 K/uL (1.0-4.3); LYMPH % 23.3 % (20.0-40.0); MEAN CELL VOLUME 81.7 fL (81.0-99.0); MEAN CORPUSCULAR HEMOGLOBIN 25.5 pg (27.0-31.0); MEAN CORPUSCULAR HGB CONC 31.2 g/dL (33.0-37.0); MEAN PLATELET VOLUME 8.8 fL (7.2-11.7); MONO # 0.7 K/uL (0.0-0.8); MONO % 8.7 % (0.0-10.0); NEUT # 5.3 K/uL (1.8-7.0); NEUT % 63.9 % (50.0-75.0); RBC 3.14 Mil/uL (3.80-5.20); WHITE BLOOD COUNT 8.3 K/uL (4.8-10.8)
--- NOTE | 2019-03-20 11:27 | CT ---
Date of service: 03/20/2019 PROCEDURE: CT Abdomen and Pelvis without intravenous contrast HISTORY: Abdominal pain. Bright red blood per rectum. COMPARISON: None. TECHNIQUE: Multiple contiguous axial images were performed through the abdomen and pelvis without the use of intravenous contrast. Subsequently, sagittal and coronal reformatted images were obtained. Radiation dose: Total exam DLP = 1113.94 mGy-cm. This CT exam was performed using one or more of the following dose reduction techniques: Automated exposure control, adjustment of the mA and/or kV according to patient size, and/or use of iterative reconstruction technique. FINDINGS: LOWER THORAX: 4 millimeter nodule and or within the right lung anteriorly on series 3, image 17. Patchy atelectasis and or consolidation within the right lower lobe. Linear atelectasis within the lingula. Mild atelectasis at the base. LIVER: Punctate calcification within the left hepatic lobe. 1.4 centimeter low-attenuation lesion seen within the medial right hepatic lobe demonstrating a Hounsfield unit attenuation of 20, indeterminate. This may be better delineated with multiphasic contrast enhanced CT or MR if indicated. GALLBLADDER AND BILE DUCTS: Unremarkable. PANCREAS: Fatty atrophy of the pancreas. SPLEEN: Small hypodensity in the midpole of the spleen, too small to adequately characterize. ADRENALS: Unremarkable. No mass. KIDNEYS AND URETERS: 6 millimeter upper pole nonobstructive left renal calculus. VASCULATURE: Atherosclerotic calcification and plaque within the aorta. BOWEL: Prominent distension of the stomach with food substance. Some thickening of the gastric wall as well as the proximal duodenum distally with associated mild adjacent fat stranding which may represent a focal gastritis and or enteritis. Clinical correlation. Moderate fecal retention in the colon. APPENDIX: Appendix grossly preserved. Mild thickening of the distal tip of the appendix measuring up to 7.3 millimeters, nonspecific. Proximal and midportion of the appendix appear preserved. PERITONEUM: Unremarkable. No free fluid. No free air. LYMPH NODES: Unremarkable. No enlarged lymph nodes. BLADDER: Unremarkable. REPRODUCTIVE: Unremarkable. BONES: Degenerative changes in the spine and bilateral hips. OTHER FINDINGS: Surgical clips in the upper abdomen. IMPRESSION: 1. Prominent thickening of the distal gastric wall at the level of the antrum and pylorus as well as the proximal duodenum suggestive for a focal gastritis/duodenitis. Clinical correlation. 2. Moderate fecal retention in the colon. 3. 6 millimeter upper pole nonobstructive left renal calculus. 4. Fatty atrophy of the pancreas. 5. Appendix grossly preserved. Mild thickening of the distal tip of the appendix measuring up to 7.3 millimeters, nonspecific. Proximal and midportion of the appendix appear preserved. Additional findings as above.
[2019-03-20 12:03] LABS: ALB/GLOB RATIO 1.3 (1.0-2.1); ALBUMIN 3.2 g/dL (3.5-5.0); ALT/SGPT 30 U/L (9-52); AST/SGOT 21 U/L (14-36); BLOOD UREA NITROGEN 18 mg/dL (7-17); GFR NON-AFRICAN AMERICAN > 60
--- NOTE | 2019-03-20 12:07 | CP.PCM.CON ---
History of Present Illness - History of Present Illness History of Present Illness: 68 yo female h/o HTN, OA, Gastritis, hypothyroid presents with weakness and anemia. Reported duspnea, CP. Pt reports sm amount BRBPR over past 2 mon ths. + COnstip. PMH- reports anemia many yrs ago- was taking iron pills. Review of Systems - Constitutional Constitutional: Fatigue, Weakness. absent: Fever, Weight Gain, Weight Loss - EENT Eyes: absent: Diplopia Nose/Mouth/Throat: absent: Throat Swelling - Cardiovascular Cardiovascular: Chest Pain, Dyspnea - Respiratory Respiratory: Dyspnea. absent: Hemoptysis, Wheezing - Gastrointestinal Gastrointestinal: Constipation, Hematochezia. absent: Abdominal Pain, Belching, Coffee Ground Emesis, Diarrhea, Hematemesis, Loose Stools, Melena, Nausea, Vomiting - Genitourinary Genitourinary: absent: Dysuria, Hematuria - Musculoskeletal Musculoskeletal: absent: Muscle Cramps - Integumentary Integumentary: absent: Rash, Jaundice Past Patient History - Past Medical History & Family History Past Medical History?: Yes - Past Social History Smoking Status: Never Smoked - CARDIAC Hx Hypercholesterolemia: Yes Hx Hypertension: Yes - PULMONARY Hx Bronchitis: Yes - NEUROLOGICAL Hx Neurological Disorder: Yes Hx Vertigo: Yes - HEENT Hx HEENT Problems: No - RENAL Hx Chronic Kidney Disease: No - ENDOCRINE/METABOLIC Hx Hypothyroidism: Yes - HEMATOLOGICAL/ONCOLOGICAL Hx Anemia: Yes - INTEGUMENTARY Hx Dermatological Problems: No - MUSCULOSKELETAL/RHEUMATOLOGICAL Hx Fractures: Yes (LEFT TIBIA ORIF) - GASTROINTESTINAL Hx Gastritis: Yes - GENITOURINARY/GYNECOLOGICAL Hx Genitourinary Disorders: Yes (BLADDER PROLAPSE) Other/Comment: HX: PELVIC ORGAN PROLAPSE; PELVIC PAIN; RETROCELE - PSYCHIATRIC Hx Substance Use: No - SURGICAL HISTORY Hx Surgeries: Yes (ABDOMINOPLASTY) Hx Herniorrhaphy: Yes (UMBILICAL HERNIA HIATAL HERNIA) Hx Hysterectomy: Yes (09/04/17) Hx Orthopedic Surgery: Yes (LEFT TIBIA FRACTURE) Other/Comment: BILAT OOPHORECTOMY. HX: 09/04/17-TOTAL LAP. HYSTERECTOMY, A&P REPAIR;CYSTOSCOPY - ANESTHESIA Hx Anesthesia: Yes Hx Anesthesia Reactions: No Hx Malignant Hyperthermia: No Meds Allergies/Adverse Reactions: Allergies Allergy/AdvReac Type Severity Reaction Status Date / Time No Known Allergies Allergy Verified 04/30/18 19:41 - Medications Medications: Current Medications Sodium Chloride (Sodium Chloride 0.9%) 1,000 mls @ 100 mls/hr IV .Q10H [facility] Last Admin: 03/20/19 09:51 Dose: Not Given Levothyroxine Sodium (Synthroid) 100 mcg PO 0630 [facility] Last Admin: 03/20/19 08:46 Dose: 100 mcg Losartan Potassium (Cozaar) 100 mg PO DAILY [facility] Last Admin: 03/20/19 09:48 Dose: Not Given Metoprolol Succinate (Toprol Xl) 50 mg PO DAILY [facility] Last Admin: 03/20/19 09:48 Dose: Not Given Pantoprazole Sodium (Protonix Inj) 40 mg IVP Q12H [facility] Last Admin: 03/20/19 09:50 Dose: 40 mg Pneumococcal Polyvalent Vaccine (Pneumovax 23 Vaccine) 0.5 ml IM .ONCE ONE Stop: 03/21/19 10:01 Rosuvastatin Calcium (Crestor) 20 mg PO [facility] Physical Exam - Constitutional Appears: Well - Neck Exam Neck exam: Negative for: Tenderness - Respiratory Exam Respiratory Exam: Clear to Auscultation Bilateral - Cardiovascular Exam Cardiovascular Exam: RRR - GI/Abdominal Exam GI & Abdominal Exam: Normal Bowel Sounds, Soft. absent: Guarding, Mass, Rebound, Tenderness - Neurological Exam Neurological exam: Alert, Oriented x3 - Skin Skin Exam: Intact Results - Vital Signs Recent Vital Signs: Last Vital Signs Temp 98 F 03/20/19 08:15 Pulse 71 03/20/19 08:15 Resp 20 03/20/19 08:15 BP 99/66 L 03/20/19 08:15 Pulse Ox 97 03/20/19 08:15 - Labs Result Diagrams: 03/20/19 10:50 03/20/19 10:50 Labs: Laboratory Results - last 24 hr 03/19/19 03/19/19 03/19/19 18:27 18:27 20:17 WBC 11.1 H RBC 3.06 L Hgb 7.7 L D Hct 24.8 L MCV 81.1 D MCH 25.0 L MCHC 30.9 L RDW 18.5 H Plt Count 325 D MPV 8.7 Neut % (Auto) 65.0 Lymph % (Auto) 19.4 L Harmon % (Auto) 11.4 H Eos % (Auto) 3.6 Baso % (Auto) 0.6 Neut # (Auto) 7.2 H Lymph # (Auto) 2.1 Harmon # (Auto) 1.3 H Eos # (Auto) 0.4 Baso # (Auto) 0.1 Sodium 139 Potassium 3.6 Chloride 104 Carbon Dioxide 28 Anion Gap 11 BUN 26 H Creatinine 0.9 Est GFR ( Amer) > 60 Est GFR (Non-Af Amer) > 60 Random Glucose 100 D Calcium 8.6 Phosphorus Magnesium Total Bilirubin 0.2 AST 25 ALT 35 Alkaline Phosphatase 103 Troponin I < 0.0120 Total Protein 6.6 Albumin 3.7 Globulin 2.9 Albumin/Globulin Ratio 1.3 Amylase < 30 L Lipase 63 Urine Color Urine Clarity Urine pH Ur Specific Alligator Urine Protein Urine Glucose (UA) Urine Ketones Urine Blood Urine Nitrate Urine Bilirubin Urine Urobilinogen Ur Leukocyte Esterase Urine WBC (Auto) Urine RBC (Auto) Ur Squamous Epith Cells Urine Bacteria Blood Type Antibody Screen 03/19/19 03/20/19 03/20/19 20:18 06:37 10:50 WBC 8.3 RBC 3.14 L Hgb 8.0 L Hct 25.6 L MCV 81.7 MCH 25.5 L MCHC 31.2 L RDW 18.0 H Plt Count 264 MPV 8.8 Neut % (Auto) 63.9 Lymph % (Auto) 23.3 Harmon % (Auto) 8.7 Eos % (Auto) 3.5 Baso % (Auto) 0.6 Neut # (Auto) 5.3 Lymph # (Auto) 1.9 Harmon # (Auto) 0.7 Eos # (Auto) 0.3 Baso # (Auto) 0.1 Sodium Potassium Chloride Carbon Dioxide Anion Gap BUN Creatinine Est GFR ( Amer) Est GFR (Non-Af Amer) Random Glucose Calcium Phosphorus Magnesium Total Bilirubin AST ALT Alkaline Phosphatase Troponin I Total Protein Albumin Globulin Albumin/Globulin Ratio Amylase Lipase Urine Color Yellow Urine Clarity Hazy Urine pH 5.0 Ur Specific Alligator 1.023 Urine Protein Negative Urine Glucose (UA) Normal Urine Ketones Negative Urine Blood Negative Urine Nitrate Negative Urine Bilirubin Negative Urine Urobilinogen 2.0 H Ur Leukocyte Esterase Neg Urine WBC (Auto) 5 Urine RBC (Auto) 1 Ur Squamous Epith Cells 1 Urine Bacteria Mod H Blood Type O POSITIVE Antibody Screen Negative 03/20/19 10:50 WBC RBC Hgb Hct MCV MCH MCHC RDW Plt Count MPV Neut % (Auto) Lymph % (Auto) Harmon % (Auto) Eos % (Auto) Baso % (Auto) Neut # (Auto) Lymph # (Auto) Harmon # (Auto) Eos # (Auto) Baso # (Auto) Sodium 140 Potassium 4.0 Chloride 107 Carbon Dioxide 27 Anion Gap 10 BUN 18 H Creatinine 0.7 Est GFR ( Amer) > 60 Est GFR (Non-Af Amer) > 60 Random Glucose 103 Calcium 8.0 L Phosphorus 3.4 Magnesium 2.0 Total Bilirubin 0.2 AST 21 ALT 30 Alkaline Phosphatase 99 Troponin I Total Protein 5.6 L Albumin 3.2 L Globulin 2.4 Albumin/Globulin Ratio 1.3 Amylase Lipase Urine Color Urine Clarity Urine pH Ur Specific Alligator Urine Protein Urine Glucose (UA) Urine Ketones Urine Blood Urine Nitrate Urine Bilirubin Urine Urobilinogen Ur Leukocyte Esterase Urine WBC (Auto) Urine RBC (Auto) Ur Squamous Epith Cells Urine Bacteria Blood Type Antibody Screen Assessment & Plan (1) HTN (hypertension) Status: Acute (2) Hypothyroid Status: Acute (3) Constipation Assessment and Plan: seen on xray. Treat with laxatives Status: Acute (4) Dyspnea Status: Acute (5) GI bleeding Assessment and Plan: RB- x 2 months- small amount. Rec- outpt colonosocpy Status: Acute (6) Symptomatic anemia Assessment and Plan: COnsider chronic- but Hb 1 yr ago was nl. Cnsider clon vs upper Gi. Hb is stable. Check Hbs. Status: Acute (7) Gastritis Assessment and Plan: Thick stomach on CT- will need outpt EGD. PPI/H2B Status: Acute
[2019-03-20] MEDS ORDERED: POLYETHYLENE GLYCOL 3350 17 GM/Dose PACKET PO ONE (16:06)
[2019-03-20] MEDS ORDERED: Aluminum Hydroxide/Magnesium Hydroxide Susp (30 mL) PO ONE (16:06)
[2019-03-20] MEDS: Psyllium Packet PO SCH ×2 (18:30→18:33)
[2019-03-20 19:47] LABS: HEMOGLOBIN 8.4 g/dL (11.0-16.0); MEAN CELL VOLUME 81.8 fL (81.0-99.0); MEAN CORPUSCULAR HEMOGLOBIN 26.1 pg (27.0-31.0); MEAN CORPUSCULAR HGB CONC 31.9 g/dL (33.0-37.0); MEAN PLATELET VOLUME 8.6 fL (7.2-11.7); RBC 3.24 Mil/uL (3.80-5.20); RED CELL DISTRIBUTION WIDTH 17.8 % (11.5-14.5); WHITE BLOOD COUNT 8.7 K/uL (4.8-10.8)
[2019-03-21] MEDS: Sodium Chloride 0.9% 1,000 ML IV SCH (05:29)
[2019-03-21] MEDS: Levothyroxine 100 MCG TAB PO SCH (05:29)
--- NOTE | 2019-03-21 06:58 | CP.PCM.DIS ---
<Natanael Ordonez - Last Filed: 03/21/19 09:51> Provider - Provider Date of Admission: 03/19/19 19:27 Attending physician: Coni Pillai MD Primary care physician: PMD: Dr. Dooley Consults: 03/19/19 21:18 Gastroenterology Consult Routine Comment: Consulting Provider: Rojas Munoz Consulting Physician: Rojas Munoz Reason for Consult: BRBPR, abd pain, Hgb 7.7, hx anemia and gastritis Time Spent in preparation of Discharge (in minutes): 44 Diagnosis - Discharge Diagnosis (1) GI bleeding Status: Acute Comment: Patient with BRBPR x 8 days before admisison. NSAID use at home. Rectal negative for acute bleed. See full hospital course (2) Symptomatic anemia Status: Acute Comment: After transfusion, no more chest pain/SOB/light headedness Hospital Course - Lab Results Lab Results: Most Recent Lab Values WBC 8.7 K/uL (4.8-10.8) 03/20/19 19:44 RBC 3.24 Mil/uL (3.80-5.20) L 03/20/19 19:44 Hgb 8.4 g/dL (11.0-16.0) L 03/20/19 19:44 Hct 26.5 % (34.0-47.0) L 03/20/19 19:44 MCV 81.8 fL (81.0-99.0) 03/20/19 19:44 MCH 26.1 pg (27.0-31.0) L 03/20/19 19:44 MCHC 31.9 g/dL (33.0-37.0) L 03/20/19 19:44 RDW 17.8 % (11.5-14.5) H 03/20/19 19:44 Plt Count 248 K/uL (130-400) 03/20/19 19:44 MPV 8.6 fL (7.2-11.7) 03/20/19 19:44 Neut % (Auto) 63.9 % (50.0-75.0) 03/20/19 10:50 Lymph % (Auto) 23.3 % (20.0-40.0) 03/20/19 10:50 [place] % (Auto) 8.7 % (0.0-10.0) 03/20/19 10:50 Eos % (Auto) 3.5 % (0.0-4.0) 03/20/19 10:50 Baso % (Auto) 0.6 % (0.0-2.0) 03/20/19 10:50 Neut # (Auto) 5.3 K/uL (1.8-7.0) 03/20/19 10:50 Lymph # (Auto) 1.9 K/uL (1.0-4.3) 03/20/19 10:50 [place] # (Auto) 0.7 K/uL (0.0-0.8) 03/20/19 10:50 Eos # (Auto) 0.3 K/uL (0.0-0.7) 03/20/19 10:50 Baso # (Auto) 0.1 K/uL (0.0-0.2) 03/20/19 10:50 Sodium 140 mmol/L (132-148) 03/20/19 10:50 Potassium 4.0 mmol/L (3.6-5.2) 03/20/19 10:50 Chloride 107 mmol/L (98-107) 03/20/19 10:50 Carbon Dioxide 27 mmol/L (22-30) 03/20/19 10:50 Anion Gap 10 (10-20) 03/20/19 10:50 BUN 18 mg/dL (7-17) H 03/20/19 10:50 Creatinine 0.7 mg/dL (0.7-1.2) 03/20/19 10:50 Est GFR ( Amer) > 60 03/20/19 10:50 Est GFR (Non-Af Amer) > 60 03/20/19 10:50 Random Glucose 103 mg/dL (65-105) 03/20/19 10:50 Calcium 8.0 mg/dl (8.6-10.4) L 03/20/19 10:50 Phosphorus 3.4 mg/dL (2.5-4.5) 03/20/19 10:50 Magnesium 2.0 mg/dL (1.6-2.3) 03/20/19 10:50 Total Bilirubin 0.2 mg/dL (0.2-1.3) 03/20/19 10:50 AST 21 U/L (14-36) 03/20/19 10:50 ALT 30 U/L (9-52) 03/20/19 10:50 Alkaline Phosphatase 99 U/L (38-126) 03/20/19 10:50 Troponin I < 0.0120 ng/mL (0.00-0.120) 03/19/19 20:17 Total Protein 5.6 g/dL (6.3-8.3) L 03/20/19 10:50 Albumin 3.2 g/dL (3.5-5.0) L 03/20/19 10:50 Globulin 2.4 gm/dL (2.2-3.9) 03/20/19 10:50 Albumin/Globulin Ratio 1.3 (1.0-2.1) 03/20/19 10:50 Amylase < 30 U/L (30-110) L 03/19/19 18:27 Lipase 63 U/L (23-300) 03/19/19 18:27 Urine Color Yellow (YELLOW) 03/20/19 06:37 Urine Clarity Hazy (Clear) 03/20/19 06:37 Urine pH 5.0 (5.0-8.0) 03/20/19 06:37 Ur Specific [place] 1.023 (1.003-1.030) 03/20/19 06:37 Urine Protein Negative mg/dL (NEGATIVE) 03/20/19 06:37 Urine Glucose (UA) Normal mg/dL (Normal) 03/20/19 06:37 Urine Ketones Negative mg/dL (NEGATIVE) 03/20/19 06:37 Urine Blood Negative (NEGATIVE) 03/20/19 06:37 Urine Nitrate Negative (NEGATIVE) 03/20/19 06:37 Urine Bilirubin Negative (NEGATIVE) 03/20/19 06:37 Urine Urobilinogen 2.0 mg/dL (0.2-1.0) H 03/20/19 06:37 Ur Leukocyte Esterase Neg Tawana/uL (Negative) 03/20/19 06:37 Urine WBC (Auto) 5 /hpf (0-5) 03/20/19 06:37 Urine RBC (Auto) 1 /hpf (0-3) 03/20/19 06:37 Ur Squamous Epith Cells 1 /hpf (0-5) 03/20/19 06:37 Urine Bacteria Mod (<OCC) H 03/20/19 06:37 Blood Type O POSITIVE 03/19/19 20:18 Antibody Screen Negative 03/19/19 20:18 - Hospital Course Hospital Course: On admission 67 y o female PMhx HTN, arthritis, hypothyroidism, anemia, gastritis, s/p hiatal hernia repair 3 y ago, who presents c/o BRBPR x 8 days and abd pain. States that the abd pain starts in mid-epigastric region and then spreads downward. Describes abd pain as achy. Denies hx of this occurring before. Reports associated palpitations, HAs, and dyspnea on exertion for the past week. Also reporting increased urinary frequency, but denies burning with urination, abnormal odor, or vaginal discharge. States she had chest pain 3 days ago which prompted her a visit to the doctor and they placed a Holter monitor on her. Denies fever, chills, n/v/d/c, or other symptoms. Hospital course Patient admitted on 03/20/19 for abd pain, bright red blood per rectum, and symptomatic anemia. PASCUAL negative for acute blood. Obstruction series in ED showed moderate to severe fecal retention. CT abd/pelvis showed: thickening of distal gastric wall at antrum/pylorus suggesting focal gastritis/duodenitis; Moderate fecal retention; 6mm non-obstructive left renal calculus; Fatty atrophy of pancreas; Mild thickening of distal appendix - nonspecific, as proximal and midportion of appendix preserved. Hgb found to be 7.7 on initial labs. Patient was transfused 2 units PRBCs over course. Patient no longer symptomatic after transfusions. Dr Munoz GI was consulted who recommended outpatient colon oscopy/endoscopy. Patient constipation apparent on CT/XRay so she was given laxatives, which were productive. Patient also complained of urinary frequency - urine cx found to be positive with > 100k CFUs. Patient was given broad antibiotic coverage (Cipro) at time of discharge. See full discharge note by attending, Dr Marlys Deleon below: 1). Please make sure to follow up with your primary care physician as scheduled for removal and evaluation of your Holter Monitor. 2). Through your Primary Care Physician, please obtain a referral for Security Associate Dr. Munoz ([phone]) to schedule an Upper Endoscopy for further evaluation of your stomach and small intestine as well as for Colonoscopy for evaluation of your colon. 3). Through your Primary Care Physician, please make sure to have your urine tested again in 7 days to make sure that the infection in urine has cleared. 4). Please make sure that you are having 8 ounces of prune juice with you breakfast daily to make sure that all of the stool from your colon is removed. This will help you to have regular bowel movements. 5). You were provided with the following prescriptions. These are the only medications that you should be on. Please have these prescriptions filled at your pharmacy on your way home from the hospital: Losartan/HCTZ 100/12.5 mg, 1 tablet by mouth once a day at 2 PM, Dispense #30 Metoprolol Succinate 50 mg, 1 tablet by mouth once a day at 8 AM (breakfast), Dispense #30 Levothyroxine 100 mcg, 1 tablet by mouth on any empty stomach at 7 AM, Dispense #30 Omeprazole 40 mg, 1 tablet by mouth once a day at 8 AM (breakfast), Dispense #30 Atorvastatin 40 mg, 1 tablet by mouth once a day at 8 PM (dinner), Dispense #30 Ferrous Sulfate 325 mg, 1 tablet by mouth once a day at 2 PM, Dispense #30 Ciprofloxacin 500 mg, 1 tablet by mouth twice a day at 8 AM (breakfast) and 8 PM (dinner) until finished, Dispense #10 Lactobacillus, 1 capsule by mouth twice a day at 10 AM and 6 PM until finished, Dispense #70 6). Please make sure NOT to lift anything heavy, NOT to exercise, and to be careful going up and down the stairs while on the antibiotic Ciprofloxacin as this will decrease your changes of inflammation/rupture of your tendons. 7). Please stay well hydrated with water throughout the day. 8). You have a nice family that cares about you. Hope you have healthy and happy rest of the year 2019. Please take care. Efrain Deleon D.O. - Date & Time of H&P Date of H&P: 03/19/19 Time of H&P: 09:06 Discharge Exam - Head Exam Head Exam: ATRAUMATIC, NORMAL INSPECTION - Eye Exam Eye Exam: EOMI, Normal appearance, PERRL. absent: Scleral icterus Additional comments: No pallor - ENT Exam ENT Exam: Mucous Membranes Moist - Neck Exam Neck exam: Full Rom - Respiratory Exam Respiratory Exam: Clear to PA & Lateral, NORMAL BREATHING PATTERN - Cardiovascular Exam Cardiovascular Exam: REGULAR RHYTHM, +S1, +S2 - GI/Abdominal Exam GI & Abdominal Exam: Normal Bowel Sounds, Soft, Tenderness (mild suprapubic) - Extremities Exam Extremities exam: normal inspection - Back Exam Back exam: absent: CVA tenderness (L), CVA tenderness (R) - Neurological Exam Neurological exam: Alert, CN II-XII Intact, Oriented x3 - Psychiatric Exam Psychiatric exam: Normal Affect, Normal Mood - Skin Skin Exam: Dry, Normal Color, Warm Discharge Plan - Discharge Medications Prescriptions: Atorvastatin Calcium 40 mg PO DAILY #30 tablet Ciprofloxacin [Cipro] 500 mg PO BID #10 tab Ferrous Sulfate 325 mg PO DAILY #30 tablet Lactobacillus Acidophilus [Lactobacillus] 1 cap PO BID #70 cap Levothyroxine [Synthroid] 100 mcg PO DAILY #30 tab Losartan/Hydrochlorothiazide [Losartan-Hctz 100-12.5 mg Tab] 1 each PO DAILY #30 tablet Metoprolol Succinate XL [Toprol XL] 50 mg PO DAILY #30 tab Omeprazole 40 mg PO DAILY #30 capsule.dr - Follow Up Plan Condition: GOOD Disposition: HOME/ ROUTINE Instructions: Anemia Caused by Low Iron, Adult (DC) Additional Instructions: Las siguientes instrucciones se explicaron al paciente y se deber proporcionar joaquina copia al paciente en espaol: 1). Asegrese de hacer un seguimiento con gar mdico de atencin primaria segn lo programado para la extraccin y evaluacin de gar monitor Holter. 2). A travs de gar mdico de atencin primaria, obtenga joaquina referencia para el gastroenterlogo Dr. Munoz ([phone]) para programar joaquina endoscopia superior para joaquina evaluacin adicional de gar estmago e intestino hernandez, as marguerite para joaquina colonoscopia para la evaluacin de gar colon. 3). A travs de gar mdico de atencin primaria, asegrese de que gar orina sea analizada nuevamente en 7 pink para asegurarse de que la infeccin en la orina haya desaparecido. 4). Asegrese de que est tomando 8 onzas de jugo de ciruela con gar desayuno todos los pink para asegurarse de que se eliminen todas las heces de gar colon. Mars le ayudar a tener movimientos intestinales regulares. 5). Se le proporcionaron las siguientes recetas. Estos son los nicos medicamentos que debe irma. Por favor, llene estas recetas en gar farmacia de ca ping a casa desde el hospital: Losartan / HCTZ 100 / 12.5 mg, 1 tableta por va oral joaquina vez al da a las 2 PM, dispensado # 30 Succinato de metoprolol 50 mg, 1 tableta por va oral joaquina vez al da a las 8 AM (desayuno), dispensado # 30 Levothyroxine 100 mcg, 1 tableta por va oral en cualquier estmago vaco a las 7 AM, Dispense # 30 Omeprazol 40 mg, 1 tableta por va oral joaquina vez al da a las 8 AM (desayuno), dispensado # 30 Atorvastatina 40 mg, 1 tableta por va oral joaquina vez al da a las 8 p. M. (Electrotype Servicer), dispensado # 30 Sulfato ferroso 325 mg, 1 tableta por va oral joaquina vez al da a las 2 PM, dispensado # 30 Ciprofloxacina 500 mg, 1 tableta por va oral dos veces al da a las 8 AM (desayuno) y 8 PM (educational assistant teacher) hasta que termine, Dispense # 10 Lactobacillus, 1 cpsula por va oral dos veces al da a las 10 AM y 6 PM hasta que termine, Dispense # 70 6). Asegrese de NO levantar objetos pesados, NO hacer ejercicio y tener cuidado al subir y bajar las escaleras mientras bird el antibitico Ciprofloxacina ya que esto disminuir los cambios de inflamacin / ruptura de los tendones. 7). Por favor mantngase devon hidratado con agua kim todo el da. 8). Tienes joaquina buena bob que se preocupa por ti. Espero que tengas un amaya y amaya kylah del ao 2019. Por favor cudate. Efrain Deleon D.O. The following instructions were explained to patient and a copy will need to be provided to patient in Azeri: 1). Please make sure to follow up with your primary care physician as scheduled for removal and evaluation of your Holter Monitor. 2). Through your Primary Care Physician, please obtain a referral for [facility] Associate Dr. Munoz ([phone]) to schedule an Upper Endoscopy for further evaluation of your stomach and small intestine as well as for Colonoscopy for evaluation of your colon. 3). Through your Primary Care Physician, please make sure to have your urine tested again in 7 days to make sure that the infection in urine has cleared. 4). Please make sure that you are having 8 ounces of prune juice with you breakfast daily to make sure that all of the stool from your colon is removed. This will help you to have regular bowel movements. 5). You were provided with the following prescriptions. These are the only medications that you should be on. Please have these prescriptions filled at your pharmacy on your way home from the hospital: Losartan/HCTZ 100/12.5 mg, 1 tablet by mouth once a day at 2 PM, Dispense #30 Metoprolol Succinate 50 mg, 1 tablet by mouth once a day at 8 AM (breakfast), Dispense #30 Levothyroxine 100 mcg, 1 tablet by mouth on any empty stomach at 7 AM, Dispense #30 Omeprazole 40 mg, 1 tablet by mouth once a day at 8 AM (breakfast), Dispense #30 Atorvastatin 40 mg, 1 tablet by mouth once a day at 8 PM (dinner), Dispense #30 Ferrous Sulfate 325 mg, 1 tablet by mouth once a day at 2 PM, Dispense #30 Ciprofloxacin 500 mg, 1 tablet by mouth twice a day at 8 AM (breakfast) and 8 PM (dinner) until finished, Dispense #10 Lactobacillus, 1 capsule by mouth twice a day at 10 AM and 6 PM until finished, Dispense #70 6). Please make sure NOT to lift anything heavy, NOT to exercise, and to be careful going up and down the stairs while on the antibiotic Ciprofloxacin as this will decrease your changes of inflammation/rupture of your tendons. 7). Please stay well hydrated with water throughout the day. 8). You have a nice family that cares about you. Hope you have healthy and happy rest of the year 2019. Please take care. Efrain Deleon D.O. <Efrain Deleon - Last Filed: 03/23/19 12:23> Provider - Provider Date of Admission: 03/19/19 19:27 Attending physician: Coni Pillai MD Consults: 03/19/19 21:18 Gastroenterology Consult Routine Comment: Consulting Provider: Rojas Munoz Consulting Physician: Rojas Munoz Reason for Consult: BRBPR, abd pain, Hgb 7.7, hx anemia and gastritis Hospital Course - Lab Results Lab Results: Micro Results 03/20/19 06:37 Urine Random Urine Culture - Final Escherichia Coli Most Recent Lab Values WBC 7.8 K/uL (4.8-10.8) 03/21/19 07:40 RBC 3.48 Mil/uL (3.80-5.20) L 03/21/19 07:40 Hgb 9.1 g/dL (11.0-16.0) L 03/21/19 07:40 Hct 28.5 % (34.0-47.0) L 03/21/19 07:40 MCV 81.7 fL (81.0-99.0) 03/21/19 07:40 MCH 26.1 pg (27.0-31.0) L 03/21/19 07:40 MCHC 32.0 g/dL (33.0-37.0) L 03/21/19 07:40 RDW 17.9 % (11.5-14.5) H 03/21/19 07:40 Plt Count 275 K/uL (130-400) 03/21/19 07:40 MPV 9.3 fL (7.2-11.7) 03/21/19 07:40 Neut % (Auto) 65.5 % (50.0-75.0) 03/21/19 07:40 Lymph % (Auto) 21.8 % (20.0-40.0) 03/21/19 07:40 [place] % (Auto) 8.4 % (0.0-10.0) 03/21/19 07:40 Eos % (Auto) 3.8 % (0.0-4.0) 03/21/19 07:40 Baso % (Auto) 0.5 % (0.0-2.0) 03/21/19 07:40 Neut # (Auto) 5.1 K/uL (1.8-7.0) 03/21/19 07:40 Lymph # (Auto) 1.7 K/uL (1.0-4.3) 03/21/19 07:40 [place] # (Auto) 0.7 K/uL (0.0-0.8) 03/21/19 07:40 Eos # (Auto) 0.3 K/uL (0.0-0.7) 03/21/19 07:40 Baso # (Auto) 0.0 K/uL (0.0-0.2) 03/21/19 07:40 Sodium 138 mmol/L (132-148) 03/21/19 07:40 Potassium 3.9 mmol/L (3.6-5.2) 03/21/19 07:40 Chloride 107 mmol/L (98-107) 03/21/19 07:40 Carbon Dioxide 24 mmol/L (22-30) 03/21/19 07:40 Anion Gap 11 (10-20) 03/21/19 07:40 BUN 9 mg/dL (7-17) 03/21/19 07:40 Creatinine 0.6 mg/dL (0.7-1.2) L 03/21/19 07:40 Est GFR ( Amer) > 60 03/21/19 07:40 Est GFR (Non-Af Amer) > 60 03/21/19 07:40 Random Glucose 97 mg/dL (65-105) 03/21/19 07:40 Calcium 8.3 mg/dl (8.6-10.4) L 03/21/19 07:40 Phosphorus 3.1 mg/dL (2.5-4.5) 03/21/19 07:40 Magnesium 1.9 mg/dL (1.6-2.3) 03/21/19 07:40 Total Bilirubin 0.3 mg/dL (0.2-1.3) 03/21/19 07:40 AST 24 U/L (14-36) 03/21/19 07:40 ALT 33 U/L (9-52) 03/21/19 07:40 Alkaline Phosphatase 101 U/L (38-126) 03/21/19 07:40 Troponin I < 0.0120 ng/mL (0.00-0.120) 03/19/19 20:17 Total Protein 6.0 g/dL (6.3-8.3) L 03/21/19 07:40 Albumin 3.2 g/dL (3.5-5.0) L 03/21/19 07:40 Globulin 2.7 gm/dL (2.2-3.9) 03/21/19 07:40 Albumin/Globulin Ratio 1.2 (1.0-2.1) 03/21/19 07:40 Amylase < 30 U/L (30-110) L 03/19/19 18:27 Lipase 63 U/L (23-300) 03/19/19 18:27 Urine Color Yellow (YELLOW) 03/20/19 06:37 Urine Clarity Hazy (Clear) 03/20/19 06:37 Urine pH 5.0 (5.0-8.0) 03/20/19 06:37 Ur Specific [place] 1.023 (1.003-1.030) 03/20/19 06:37 Urine Protein Negative mg/dL (NEGATIVE) 03/20/19 06:37 Urine Glucose (UA) Normal mg/dL (Normal) 03/20/19 06:37 Urine Ketones Negative mg/dL (NEGATIVE) 03/20/19 06:37 Urine Blood Negative (NEGATIVE) 03/20/19 06:37 Urine Nitrate Negative (NEGATIVE) 03/20/19 06:37 Urine Bilirubin Negative (NEGATIVE) 03/20/19 06:37 Urine Urobilinogen 2.0 mg/dL (0.2-1.0) H 03/20/19 06:37 Ur Leukocyte Esterase Neg Tawana/uL (Negative) 03/20/19 06:37 Urine WBC (Auto) 5 /hpf (0-5) 03/20/19 06:37 Urine RBC (Auto) 1 /hpf (0-3) 03/20/19 06:37 Ur Squamous Epith Cells 1 /hpf (0-5) 03/20/19 06:37 Urine Bacteria Mod (<OCC) H 03/20/19 06:37 Blood Type O POSITIVE 03/19/19 20:18 Antibody Screen Negative 03/19/19 20:18 Attending/Attestation - Attestation I have personally seen and examined this patient.: Yes I have fully participated in the care of the patient.: Yes I have reviewed all pertinent clinical information, including history, physical exam and plan: Yes Notes (Text): 03/23/19 12:23 This is a late entry. Care of this patient was gone over in detail with resident Dr. Rajat Ordonez. Efrain Deleon D.O.
[2019-03-21 07:31] VITALS: BP 118/68; PULSE 70; TEMP 98.1; O2SAT 97
[2019-03-21 07:53] LABS: BASO % 0.5 % (0.0-2.0); EOS # 0.3 K/uL (0.0-0.7); EOS % 3.8 % (0.0-4.0); HEMOGLOBIN 9.1 g/dL (11.0-16.0); LYMPH # 1.7 K/uL (1.0-4.3); LYMPH % 21.8 % (20.0-40.0); MEAN CELL VOLUME 81.7 fL (81.0-99.0); MEAN CORPUSCULAR HEMOGLOBIN 26.1 pg (27.0-31.0); MEAN PLATELET VOLUME 9.3 fL (7.2-11.7); MONO # 0.7 K/uL (0.0-0.8); MONO % 8.4 % (0.0-10.0); NEUT # 5.1 K/uL (1.8-7.0); NEUT % 65.5 % (50.0-75.0); RBC 3.48 Mil/uL (3.80-5.20); RED CELL DISTRIBUTION WIDTH 17.9 % (11.5-14.5); WHITE BLOOD COUNT 7.8 K/uL (4.8-10.8)
--- NOTE | 2019-03-21 08:58 | CP.PCM.PCO ---
Physician Communication Note - Physician Communication Note Physician Communication Note: Please see above
[2019-03-21 09:00] LABS: ALB/GLOB RATIO 1.2 (1.0-2.1); ALBUMIN 3.2 g/dL (3.5-5.0); ALT/SGPT 33 U/L (9-52); AST/SGOT 24 U/L (14-36); BLOOD UREA NITROGEN 9 mg/dL (7-17); CALCIUM 8.3 mg/dl (8.6-10.4); GFR NON-AFRICAN AMERICAN > 60
[2019-03-21] MEDS: Metoprolol Succinate 50 mg XL Tab PO SCH (09:21)
[2019-03-21] MEDS: Psyllium Packet PO SCH (09:22)
[2019-03-21] MEDS ORDERED: Pneumococcal 23-Valent Vaccine IM ONE (10:00)
--- NOTE | 2019-03-23 12:31 | CP.PCM.PCO ---
Physician Communication Note - Physician Communication Note Physician Communication Note: Please see above
== END 2019-03-21 13:55 | disposition home or self-care (01) ==
LOC: C.ER 17:58 → C.9E 19:27 → C.3T 19:51
PROVIDERS: ADMIT Emergency Medicine; ATTEND Emergency Medicine
DX: K92.2 Gastrointestinal hemorrhage, unspecified (principal); D64.9 Anemia, unspecified; R10.13 Epigastric pain; E78.00 Pure hypercholesterolemia, unspecified; E03.9 Hypothyroidism, unspecified; I10 Essential (primary) hypertension; Z23 Encounter for immunization; Z79.899 Other long term (current) drug therapy
CPT/HCPCS: 36415; 36430; 74022; 74176; 80053; 81001; 82150; 83690; 83735; 84100; 84484; 85025; 85027; 86850; 86900; 86920; 87086; 87181; 90732; 96361; 96374; 96375; 96376; 99285; C9113; G0009; G0378; J1885; J7030; P9051